=== PATIENT | male | born 1960 | race Caucasian/White ===

== ENCOUNTER 2024-05-05 06:33 | Day surgery (SDC) | payer BC ==
[2024-05-05] MEDS ORDERED: Propofol 200 MG/20 ML SDV ONE (07:20)
[2024-05-05] MEDS ORDERED: fentaNYL 100 MCG/2 ML SDV ONE (07:21)
[2024-05-05] MEDS: Lactated Ringers 1,000 ML IV SCH (07:22)
== END 2024-05-05 09:45 | disposition home or self-care (01) ==
LOC: JP.SDS 06:33
PROVIDERS: ATTEND Family Medicine
DX: Z12.11 Encounter for screening for malignant neoplasm of colon (principal); K63.5 Polyp of colon; K62.1 Rectal polyp; Z86.0100 Personal history of colon polyps, unspecified; Z80.0 Family history of malignant neoplasm of digestive organs; I10 Essential (primary) hypertension; E78.5 Hyperlipidemia, unspecified
CPT/HCPCS: 00811-QZ; 88305; J2704; J3010; J7120